=== PATIENT | male | born 1940 | race Caucasian/White ===

== ENCOUNTER 2019-08-24 05:17 | Emergency (ER) | payer MEDICARE, SELFPAY ==
--- NOTE | ~2019-08-24 | XR_ITS ---
EXAMINATION: CT abdomen pelvis wo con, XR abdomen/kub 1V DATE: 08/24/2019 06:00 INDICATION: Right lower quadrant abdominal pain. TECHNIQUE: 1. Computed tomography (CT) of the abdomen and pelvis was performed without intravenous contrast. Aut omated exposure control and iterative reconstruction technique were employed. The dose-length product was 199.77 mGy-cm. 2. AP view of the abdomen was obtained on 2 images. COMPARISON: None FINDINGS: CT: Mild discoid atelectasis/scarring at the lingula. Heart size normal. Aortic valve calcification. Athe rosclerotic coronary artery calcifications. No pericardial or pleural effusion. Splenic Calcination c onsistent with old granulomatous disease. Liver, gallbladder, pancreas and bilateral adrenal glands a re normal. 2 mm obstructing renal stone at the right ureterovesicular junction resulting in mild righ t hydroureteronephrosis. No other nephrolithiasis. A couple low-attenuation left renal cysts the larg est at the lower pole measuring 5.6 cm. Small fat-containing umbilical hernia. Bladder is normal. Pro statomegaly. There is mild colonic diverticulosis with a sigmoid predominance. There is no adjacent inflammatory change to suggest diverticulitis. Small bowel is normal with no obstruction. Normal ebony endix. Fat-containing right inguinal hernia. Mild lumbar levocurvature. Mild scattered degenerative s keletal changes. KUB: The 2 mm stone at the right ureterovesicular junction is subtly visible projecting slightly cephalad to a larger more conspicuous phlebolith in the right hemipelvis. IMPRESSION: 1. 2 mm obstructing stone in the right ureterovesicular junction with mild right hydroureteronephrosi s. 2. Fat-containing umbilical and right inguinal hernias. Reviewed, dictated and finalized at location A. IMPRESSION: 1. 2 mm obstructing stone in the right ureterovesicular junction with mild righ t hydroureteronephrosis. 2. Fat-containing umbilical and right inguinal hernias.
[2019-08-24 05:22] VITALS: BP 160/80; PULSE 76; RESP 17; TEMP 36.9; O2SAT 99
--- NOTE | 2019-08-24 05:36 | ED.ABDPAIN ---
HPI - Abdominal Pain General Chief Complaint: Abdominal Pain Stated Complaint: LQ ABD pain Time Seen by Provider: 08/24/19 05:26 Source: patient Mode of arrival: ambulatory Limitations: no limitations History of Present Illness HPI narrative: This patient is an 79 yo male who presents from home for evaluation of right lower abdominal pain. Patient states around midnight he developed pain to right groin pain. He reports initially he walked around the house for an hour and his pain seemed to improved. Then his pain became so severe he developed nausea and vomiting. His pain is now located at right lower quadrant. He has had kidney stones in the past but he states this pain is differents. He denies urinary complaints, fever or chills. MD elicited complaint: abdominal pain Pertinent past history: kidney stones Onset (ago): hour(s) (5) Pain Consistency: constant Location: RLQ and groin (right) Severity: severe Pain scale (0-10): 10 Radiation: RLQ Exacerbating factors: nothing Relieving factors: nothing Associated symptoms: nausea and vomiting Related Data Home Medications Medication Instructions Recorded Confirmed alprazolam 0.5 mg tablet 0.5 mg PO BID 02/19/19 amlodipine 2.5 mg tablet 2.5 mg PO DAILY 02/19/19 rosuvastatin 10 mg tablet 10 mg PO DAILY 02/19/19 Allergies Allergy/AdvReac Type Severity Reaction Status Date / Time No Known Allergies Allergy Unknown Unverified 08/24/19 05:25 Review of Systems Review of Systems: All systems reviewed & are unremarkable except as noted in HPI and below Constitutional: Constitutional: Denies chills and Denies fever(s) ENT: Denies dizziness and Denies sore throat Respiratory: Respiratory: Denies cough Gastrointestinal: Gastrointestinal: Reports abdominal pain, Denies constipation, Denies diarrhea, Reports nausea and Reports vomiting Genitourinary: Genitourinary: Denies hematuria, Denies dysuria, Reports testicular pain (right) and Denies urinary frequency PMFSH Past Medical History Medical History (Updated 08/24/19 @ 06:21 by Myrtle Álvarez MD) Hypertension Kidney stone on left side removed Surgical History Surgical History H/O hernia repair left History of removal of skin mole Social History Social History (Reviewed 03/12/19 @ 13:24 by [facility]man [facility] Smoking status: Former smoker Smoking end date: 04/18/1968 Alcohol intake: current Gender identity (if verbalized by the patient): Male Exam Const: General: alert Orientation/consciousness: patient oriented x3 Other: patient holding right lower abdomen in moderate distress Eyes: EOM: EOMs intact bilaterally Chest: Chest palpation & inspection: normal inspection of the chest Resp: Effort & Inspection: normal respiratory effort, no retractions and no use of accessory muscles Auscultation: clear to auscultation bilaterally Cardio: Rate: regular rate Rhythm: regular rhythm Heart sounds: no murmurs GI: GI Palp: Yes Soft to palpation, Yes Tenderness to palpation present (GI) (RLQ), No Guarding due to palpation present (GI), No Rigid due to palpation, No Hernia present and No Palpable mass present Auscultation: normal bowel sounds : General: Yes no CVA tenderness Scrotum: no scrotal swelling Testes: no testicular swelling and no testicular tenderness Skin: General skin exam: normal color Rashes: no rashes Neuro: General: patient oriented x3 and moves all extremities Course Reevaluation(s) Reevaluation #1: Patient states his pain has resolved after IVF, Toradol 15 mg IV and flomax. Date: 08/24/19 Time: 06:52 Vital Signs Vital signs: Vital Signs Temperature 98.4 F 08/24/19 05:22 Pulse Rate 76 08/24/19 05:22 Respiratory Rate 17 08/24/19 05:22 Blood Pressure 160/80 H 08/24/19 05:22 Pulse Oximetry 99 08/24/19 05:22 Temperature 98.4 F 08/24/19 05:22 Pulse Rate 87 08/24/19
[2019-08-24] MEDS: ONDANSETRON INJ 4 MG/2 ML VIAL IV PUSH ×2 (05:40→06:29)
[2019-08-24] MEDS: HYDROMORPHONE HCL 1 MG/ML INJ 0.5 MG IV PUSH (05:40)
[2019-08-24] MEDS: LACTATED RINGERS 1,000 ML 999 ML IV CONT (05:41)
[2019-08-24 05:55] LABS: Basophils Percent Auto 0.3 % (0.2-1.2); Eosinophils Percent Auto 0.5 % (0-4.4); Hematocrit 44.9 % (42.0-52.0); Hemoglobin 14.7 g/dL (14.0-18.0); Immature Granulocyte Absolute 0.03 K/mm3 (0.00-0.031); Immature Granulocyte Percent A 0.4 % (0-0.5); Immature Platelet Fraction Pct 3.3 % (0.9-11.2); Lymphocytes Absolute Auto 1.52 K/mm3 (0.9-3.2); Lymphocytes Percent Auto 19.4 % (18.3-44.2); Mean Corpuscular HGB Conc 32.7 g/dl (32-36); Mean Corpuscular Hemoglobin 30.2 pg (26-34); Mean Corpuscular Volume 92.2 fl (80-100); Mean Platelet Volume 11.5 fl (7.4-10.4); Monocytes Absolute Auto 0.4 K/mm3 (0.1-0.6); Monocytes Percent Auto 4.6 % (2.6-8.5); Neutrophils Absolute Auto 5.9 K/mm3 (1.3-6.7); Neutrophils Percent Auto 74.8 % (45.5-73.1); Platelet Count Result 134 k/mm3 (150-375); Red Blood Count 4.87 M/mm3 (4.6-6.20); Red Cell Distribution Width 13.5 % (11.5-14.5); White Blood Count 7.8 K/mm3 (4.5-10.0)
[2019-08-24 06:07] LABS: Alanine Aminotransferase 33 U/L (4-50); Albumin Level 4.8 g/dL (3.5-5.1); Alkaline Phosphatase 79 U/L (38-126); Aspartate Amino Transferase 35 U/L (17-59); Bilirubin,Total 0.5 mg/dL (0.2-1.3); Blood Urea Nitrogen 27 mg/dL (9-20); Calcium 9.3 mg/dL (8.4-10.2); Carbon Dioxide 24 mmol/L (22-30); Chloride 108 mmol/L (98-107); Estimated Glomerular Filt Rate 49; Glucose 138 mg/dL (75-110); Potassium 4.5 mmol/L (3.4-5.0); Sodium 140 mmol/L (137-145)
[2019-08-24] MEDS: KETOROLAC 30 MG/ML VIAL (*BKC) (06:27)
[2019-08-24] MEDS: TAMSULOSIN HCL 0.4 MG CAPSULE PO (06:31)
[2019-08-24 06:33] VITALS: BP 142/83; PULSE 87; RESP 17; O2SAT 96
[2019-08-24 06:36] LABS: Add Urine Microscopic? YES; Appearance Urine Clear (Clear); Bilirubin Urine Negative (Negative); Blood Urine 3+ (Negative); Color Urine Yellow (Yellow); Glucose Urine UA Negative (Negative); Ketones Urine 1+ mg/dL (Negative); Leukocyte Esterase Ur Negative LEU/UL (Negative); Mucus Urine Rare /lpf; Nitrate Urine Negative (Negative); Protein Urine 1+ mg/dL (Negative); RBC Urine >75 /hpf (0-2); Specific Grav Ur 1.017 (1.001-1.035); Urobilinogen Urine Negative mg/dL (<2.0)
[2019-08-24 07:08] VITALS: BP 114/63; PULSE 64; RESP 16; O2SAT 98
== END 2019-08-24 07:10 | disposition home or self-care (01) ==
PROVIDERS: Emergency Provider General Practice; PCP Internal Medicine
DX: N13.2 Hydronephrosis with renal and ureteral calculous obstruction (principal); N18.9 Chronic kidney disease, unspecified; I12.9 Hypertensive chronic kidney disease with stage 1 through stage 4 chronic kidney disease, or unspecified chronic kidney disease; Z87.891 Personal history of nicotine dependence; Z87.442 Personal history of urinary calculi; K42.9 Umbilical hernia without obstruction or gangrene; K40.90 Unilateral inguinal hernia, without obstruction or gangrene, not specified as recurrent
CPT/HCPCS: 36415; 74018; 74176; 80053; 81001; 85025; 85055; 96361; 96374; 96375; 96376; 99284; A9270; J1170; J1885; J2405; J7120

== ENCOUNTER 2025-03-17 10:33 | Emergency (ER) | payer MEDICARE, SELFPAY ==
--- NOTE | ~2025-03-17 | US_ITS ---
EXAMINATION: US venous doppler LE RT DATE: 03/17/2025 11:56 INDICATION: Right calf pain. TECHNIQUE: Grayscale ultrasound images without and with compression and Doppler ultrasound images of the right lower extremity veins were obtained. COMPARISON: None. FINDINGS: The visualized portions of right common femoral vein, profunda (deep) femoral vein, lesser saphenous vein, and greater saphenous vein outflow are patent. There is thrombus in the right femoral, popliteal, posterior tibial, peroneal, and gastrocnemius veins. IMPRESSION: 1. Deep vein thrombosis involving the right femoral, popliteal, posterior tibial, peroneal, and gastrocnemius veins. Reviewed, dictated and finalized at location E. ERTY MANAGEMENT ASSISTANT IMPRESSION: 1. Deep vein thrombosis involving the right femoral, popliteal, posterior tibi al, peroneal, and gastrocnemius veins.
[2025-03-17 10:42] VITALS: BP 154/91; PULSE 84; RESP 19; TEMP 36.7; O2SAT 99
--- NOTE | 2025-03-17 10:47 | ED_ITS ---
HPI - General Adult General Chief complaint: Extremity Problem,Nontraumatic Stated complaint: calf and leg pain in calf and leg Time Seen by Provider: 03/17/25 10:36 History of Present Illness HPI narrative: 84-year-old male presenting to the emergency department for right calf pain. Patient reports night into Tuesday he began developing some right calf pain. Patient states on Tuesday he had some fullness of the right calf. Patient denies any recent falls or injuries. Patient denies any chest pain or shortness of breath. Patient denies any prior history of PE or DVT. Patient states he was having some difficulty ambulating secondary to the pain. Patient states when he is sitting he has pain that radiates down the right lateral leg into the right calf. Related Data Allergies Allergy/AdvReac Type Severity Reaction Status Date / Time Sulfa (Sulfonamide Allergy Unknown Verified 03/17/25 10:47 Antibiotics) Review of Systems 2 Review of Systems: All systems reviewed & are unremarkable except as noted in HPI and below PMFSH Past Medical History Medical History (Updated 03/17/25 @ 13:13 by Jose A Meza MD) Renal insufficiency Hyperglycemia Venous stasis dermatitis Lower extremity edema Venous insufficiency PAD (peripheral artery disease) BPH (benign prostatic hyperplasia) Hyperlipidemia Umbilical hernia without obstruction and without gangrene Anxiety Hypertension Kidney stone on left side removed Surgical History Surgical History History of ankle surgery left 1999 History of removal of skin mole H/O hernia repair left Family History Family History Sibling Diabetes mellitus Family history of malignant neoplasm Family history of pancreatic cancer Social History Social History Social History: 01/02/[address] [facility] Smoking status: Former smoker Smoking end date: 04/18/1968 Alcohol intake: current Substance use: never Living arrangements: with family Occupation/Education: retired Gender identity (if verbalized by the patient): Male Spiritual care concerns: No Exam 2 Narrative: APPEARANCE: Well appearing, no pain, no distress, well-nourished. HEAD: normocephalic, atraumatic. EYES: PERRLA/EOMI, conjunctivae clear. NOSE: Normal no drainage EARS:TMS clear with good light reflex. THROAT: Pharynx clear, no exudate. NECK: Supple. No adenopathy, no masses. RESPIRATORY: Airway patent, respirations nonlabored. Clear to auscultation bilaterally, no rales, rhonchi, wheezing. CARDIOVASCULAR: Regular rate and rhythm without murmurs rubs or gallops. ABDOMINAL: Soft, nontender, nondistended, normal bowel sounds MUSCULOSKELETAL: No significant calf tenderness to palpation, no large effusion, neurovascularly intact, no tenderness of right hip NEURO: Alert. Cranial nerves II through XII intact. Good gait. Good coordination SKIN: Warm, dry. Normal Color Course Vital Signs Vital signs: Vital Signs Temperature 98.0 F 03/17/25 10:42 Pulse Rate 84 03/17/25 10:42 Respiratory Rate 19 03/17/25 10:42 Blood Pressure 154/91 H 03/17/25 10:42 Pulse Oximetry 99 03/17/25 10:42 Oxygen Delivery Room Air 03/17/25 10:42 Temperature 98.0 F 03/17/25 10:42 Pulse Rate 66 03/17/25 13:30 Respiratory Rate 16 03/17/25 13:30 Blood Pressure 126/76 03/17/25 13:30 Pulse Oximetry 98 03/17/25 13:30 Oxygen Delivery Room Air 03/17/25 10:42 Medical Decision Making [facility] Narrative Medical decision making narrative: 84-year-old male presenting to the emergency department for evaluation for right lower leg pain. Patient is neurovascularly intact. Patient has no significant erythema or pitting edema of right lower extremity. Patient did have worsening calf swelling a few days ago per patient but no significant calf swelling now. Patient denies any chest pain denies any shortness of breath. Patient denies any a bleeding. DVT study was positive for DVT of the right lower extremity. Patient and family are updated the results of the workup. They do have family member that had previously been on Eliquis so they were familiar with the medication. I did discuss the risks and benefits of the medication. Patient was provided 30 days of 2.5 mg of Eliquis. This dose was renally adjusted for him. Patient was also encouraged to have close follow-up with his primary care physician for additional days of medication and for further outpatient evaluation. All questions concerns were addressed patient and family are comfortable with the plan for discharge and close follow-up. They were also educated on board reasons to return to the emergency department. Differential Diagnosis Differential Diagnosis: Muscle cramp, muscle strain, DVT, pulmonary embolism Vital Signs Vital Signs: Vital Signs Temperature 98.0 F 03/17/25 10:42 Pulse Rate 84 03/17/25 10:42 Respiratory Rate 19 03/17/25 10:42 Blood Pressure 154/91 H 03/17/25 10:42 Pulse Oximetry 99 03/17/25 10:42 Oxygen Delivery Room Air 03/17/25 10:42 Temperature 98.0 F 03/17/25 10:42 Pulse Rate 66 03/17/25 13:30 Respiratory Rate 16 03/17/25 13:30 Blood Pressure 126/76 03/17/25 13:30 Pulse Oximetry 98 03/17/25 13:30 Oxygen Delivery Room Air 03/17/25 10:42 Lab Data Lab results reviewed: Yes I reviewed the patient's lab results. 03/17/25 11:09 03/17/25 11:09 Labs: Lab Results 03/17/25 Range/Units 11:09 WBC 6.2 (4.5-10.0) K/mm3 RBC 4.74 (4.6-6.20) M/mm3 Hgb 14.2 (14.0-18.0) g/dL Hct 43.5 (42.0-52.0) % MCV 91.8 (80-100) fl MCH 30.0 (26-34) pg MCHC 32.6 (32-36) g/dl RDW 13.5 (11.5-14.5) % Plt Count 120 L (150-375) k/mm3 MPV 9.3 (7.4-10.4) fl Immature Gran % (Auto) 0.3 (0-0.5) % Neut % (Auto) 66.9 (45.5-73.1) % Lymph % (Auto) 20.2 (18.3-44.2) % Slope % (Auto) 8.1 (2.6-8.5) % Eos % (Auto) 4.2 (0-4.4) % Baso % (Auto) 0.3 (0.2-1.2) % Lymph # (Auto) 1.25 (0.9-3.2) K/mm3 Slope # (Auto) 0.5 (0.1-0.6) K/mm3 Eos # (Auto) 0.3 (0-0.3) K/mm3 Baso # (Auto) 0.0 (0.0-0.1) K/mm3 Abs Immat Gran (auto) 0.02 (0.00-0.031) K/mm3 Absolute Neuts (auto) 4.2 (1.3-6.7) K/mm3 Absolute Nucleated RBC 0.000 (0.0-0.012) K/mm3 Nucleated RBC % 0.0 (0.0-0.2) % PT 15.0 H (11.1-14.7) Seconds INR 1.2 APTT 32.0 (22.3-36.8) Seconds Sodium 141 (137-145) mmol/L Potassium 3.9 (3.4-5.0) mmol/L Chloride 110 H (98-107) mmol/L Carbon Dioxide 26 (22-30) mmol/L Anion Gap 5 (4-12) mmol/L BUN 25 H (9-20) mg/dL Creatinine 1.60 H (0.7-1.3) mg/dL Estim Creat Clear Calc 28 ml/min Estimated GFR 41 L (59 - ) Glucose 118 H (65-110) mg/dL Calcium 9.1 (8.4-10.2) mg/dL Total Creatine Kinase 36 L (55-170) U/L Imaging Data Radiologist's impression: Impressions Venous Doppler Study 03/17/25 12:07 IMPRESSION: 1. Deep vein thrombosis involving the right femoral, popliteal, posterior tibial, peroneal, and gastrocnemius veins. Discharge Plan Discharge Clinical Impression: DVT (deep venous thrombosis) Patient Disposition: Home Condition: Stable Instructions: Antibiotic Form Additional Instructions: You are being started on Eliquis for the DVT in your right leg. Close follow-up with your primary care physician for additional outpatient testing. If you have any acute upper or lower GI bleeding or if you have a head injury then you need to present to the emergency department for immediate evaluation. Patient Language: Citizen Of [place] Prescriptions: New Eliquis 2.5 mg tablet 2.5 mg PO BID 30 Days Qty: 60 0RF No Action amlodipine 2.5 mg tablet 2.5 mg PO DAILY Qty: 90 1RF dapagliflozin propanediol [Farxiga] 10 mg tablet 10 mg PO DAILY Qty: 90 1RF furosemide 20 mg tablet 20 mg PO DAILY Qty: 90 1RF rosuvastatin 10 mg tablet 10 mg PO DAILY Qty: 90 1RF triamcinolone acetonide 0.1 % lotion 1 applic topical BID Qty: 60 2RF alprazolam 0.5 mg tablet 0.5 mg PO BID Qty: 60 2RF Follow-up/Referrals: Miguelina Carlton PA-C [Primary Care Provider, Family Practice]
[2025-03-17 11:00] VITALS: BP 115/74; PULSE 77; RESP 16; O2SAT 98
--- OUTSIDE RECORDS SUMMARY | 2025-03-17 11:01 | XMS_ITS | Clinical Summary ---
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 Name Role Phone Unavailable Primary Care Provider Unavailabl e Social History Tobacco Use Types Packs/Day Years Used Date Smoking Tobacco: Never Assessed Sex and Gender Information Value Date Recorded Sex Assigned at Not on file Legal Sex Male 7:42 PM CDT Gender Identity Not on file Sexual Orientation Not on file Plan of Treatment Health Maintenance Due Date Last Done Comments DTaP, Tdap and Td Vaccines ( 1 - Tdap) 1957 Pneumococcal Vaccine: 50+ Ye ars (1 of 1 - PCV) 1988 Zoster Vaccines (1 of 2) 1988 RSV Immunization or 60+ Years (1 - 1-dose 75+ series) 2013 COVID-19 Vaccine ( - 2024-2 6 season) 2024 Influenza Adult (#1) 2025 Hepatitis A Vaccines Aged Out No long er eligible based on patient's age to complete this topic Meningococcal B Vaccine Aged Out No l onger eligible based on patient's age to complete this topic Meningococcal Vaccine Aged Out No salima neena eligible based on patient's age to complete this topic RSV Immunizations Under 20 Months Aged Out No longer eligible based on patient's age to complete this topic
[2025-03-17 11:15] LABS: Hematocrit 43.5 % (42.0-52.0); Hemoglobin 14.2 g/dL (14.0-18.0); Immature Granulocyte Percent A 0.3 % (0-0.5); Lymphocytes Absolute Auto 1.25 K/mm3 (0.9-3.2); Mean Corpuscular HGB Conc 32.6 g/dl (32-36); Mean Corpuscular Hemoglobin 30.0 pg (26-34); Mean Corpuscular Volume 91.8 fl (80-100); Nucleated Red Blood Cells Absolute Auto 0.000 K/mm3 (0.0-0.012); Nucleated Red Blood Cells Perc 0.0 % (0.0-0.2); Platelet Count Result 120 k/mm3 (150-375); Red Blood Count 4.74 M/mm3 (4.6-6.20); White Blood Count 6.2 K/mm3 (4.5-10.0)
[2025-03-17 11:27] LABS: Anion Gap 5 mmol/L (4-12); Blood Urea Nitrogen 25 mg/dL (9-20); Calcium 9.1 mg/dL (8.4-10.2); Carbon Dioxide 26 mmol/L (22-30); Chloride 110 mmol/L (98-107); Creatine Kinase 36 U/L (55-170); Estimated CRCL calculation 28 ml/min; Estimated Glomerular Filt Rate 41; Glucose 118 mg/dL (65-110); Potassium 3.9 mmol/L (3.4-5.0); Sodium 141 mmol/L (137-145)
[2025-03-17 11:28] LABS: INR 1.2; Partial Thromboplastin Time 32.0 Seconds (22.3-36.8); Prothrombin Time 15.0 Seconds (11.1-14.7)
[2025-03-17 12:00] VITALS: BP 122/68; PULSE 72; RESP 16; O2SAT 98
[2025-03-17 13:00] VITALS: BP 128/85; PULSE 65; RESP 14; O2SAT 99
[2025-03-17 13:30] VITALS: BP 126/76; PULSE 66; RESP 16; O2SAT 98
== END 2025-03-17 13:39 | disposition home or self-care (01) ==
PROVIDERS: Emergency Provider Emergency Medicine; PCP Physician Assistant Medical
DX: I82.411 Acute embolism and thrombosis of right femoral vein (principal); I82.431 Acute embolism and thrombosis of right popliteal vein; I82.441 Acute embolism and thrombosis of right tibial vein; I82.451 Acute embolism and thrombosis of right peroneal vein; I82.461 Acute embolism and thrombosis of right calf muscular vein; I73.9 Peripheral vascular disease, unspecified; I10 Essential (primary) hypertension; E78.5 Hyperlipidemia, unspecified; N40.0 Benign prostatic hyperplasia without lower urinary tract symptoms; N28.9 Disorder of kidney and ureter, unspecified; F41.9 Anxiety disorder, unspecified; Z87.442 Personal history of urinary calculi; Z87.891 Personal history of nicotine dependence; Z79.899 Other long term (current) drug therapy
CPT/HCPCS: 36415; 80048; 82550; 85025; 85610; 85730; 93971; 99284